=== PATIENT | male | born 1995 | race African-American/Black ===

== ENCOUNTER 2017-09-25 14:26 | Emergency (ER) | payer BC, MEDICAID ==
[~2017-09-25] VITALS: Ht 195.6 cm; Wt 70.0 kg
[2017-09-25] MEDS ORDERED: ONDANSETRON 4MG ODT PO ONE (19:30)
[2017-09-25 20:39] LABS: BASOPHILS % 0.7 % (0.0-2.0); EOSINOPHILS % 8.9 % (0.0-5.0); HEMATOCRIT. 41.8 % (42.0-52.0); HEMOGLOBIN. 13.7 g/dL (14.0-18.0); LYMPHOCYTES % 19.5 % (20.0-50.0); MEAN CORPUSCULAR HEMOGLOBIN 27.3 pg (28.0-32.0); MEAN CORPUSCULAR VOLUME 83.5 fL (80.0-94.0); MEAN PLATELET VOLUME 8.3 fl (7.4-10.4); MONOCYTES % 13.1 % (2.0-8.0); NEUTROPHILS % 57.8 % (40.0-76.0); PLATELET 162 x1000/uL (130-400); RED BLOOD CELL COUNT 5.01 mill/uL (4.7-6.1); RED CELL DISTRIBUTION WIDTH 13.1 % (11.6-14.6)
[2017-09-25 20:45] LABS: CHLORIDE 104 mEq/L (98-107)
[2017-09-25 20:51] LABS: CARBON DIOXIDE 30 mEq/L (21-32)
[2017-09-25 20:58] VITALS: BP 125/71
== END 2017-09-25 21:44 | disposition home or self-care (01) ==
LOC: ER 16:53
DX: R11.2 Nausea with vomiting, unspecified (principal); R19.7 Diarrhea, unspecified; J45.909 Unspecified asthma, uncomplicated; Z90.49 Acquired absence of other specified parts of digestive tract
CPT/HCPCS: 36415; 80048; 85025; 99284; Q0162

== ENCOUNTER 2019-06-29 01:19 | Emergency (ER) | payer BC, MEDICAID ==
[~2019-06-29] VITALS: Ht 185.4 cm; Wt 68.0 kg
[2019-06-29] MEDS ORDERED: PREDNISONE 20MG TABLET PO ONE (02:00)
[2019-06-29] MEDS ORDERED: ALBUTEROL (0.083%) 2.5MG/3ML NEB HHN ONE (02:00)
[2019-06-29 02:44] VITALS: BP 132/75
== END 2019-06-29 02:45 | disposition home or self-care (01) ==
LOC: ER 01:19
DX: J45.901 Unspecified asthma with (acute) exacerbation (principal)
CPT/HCPCS: 71045; 94640; 99283; J7512; J7611; Z7610

== ENCOUNTER 2023-07-28 01:34 | Emergency (ER) | payer BC, MEDICAID ==
[~2023-07-28] VITALS: Ht 190.5 cm; Wt 86.5 kg
[2023-07-28 01:45] VITALS: BP 159/98; PULSE 72; RESP 20; TEMP 98.2; O2SAT 97
[2023-07-28 02:55] LABS: CHLORIDE 107 mEq/L (98-107); INDEX HEMOLYSI 1 (1-3); INDEX ICTERIC 1 (1-4); INDEX LIPEMIC 1 (1-3); SODIUM 142 mEq/L (136-145)
[2023-07-28 03:02] LABS: ALANINE AMINOTRANSFERASE 30 IU/L (13-61); ALBUMIN 4.4 g/dL (3.4-5.0); ASPARTATE AMINOTRANSFERASE 25 IU/L (15-37); BILIRUBIN TOTAL 0.7 mg/dL (0.1-1.0); CALCIUM 9.3 mg/dL (8.5-10.1); CARBON DIOXIDE 30 mEq/L (21-32); CREATININE 1.3 mg/dL (0.6-1.3); GLUCOSE 102 mg/dL (70-105); PROTEIN TOTAL 7.9 g/dL (6.0-8.3); UREA NITROGEN BLOOD 11 mg/dL (7-21)
[2023-07-28 03:04] LABS: BASOPHILS % 0.3 % (0.0-2.0); EOSINOPHILS % 0.8 % (0.0-5.0); HEMATOCRIT. 43.4 % (42.0-52.0); HEMOGLOBIN. 14.4 g/dL (14.0-18.0); LYMPHOCYTES % 13.4 % (20.0-50.0); MEAN CORPUSCULAR HEMOGLOBIN 27.6 pg (28.0-32.0); MEAN CORPUSCULAR HGB CONC 33.2 g/dL (31.0-37.0); MEAN CORPUSCULAR VOLUME 83.2 fL (80.0-94.0); MEAN PLATELET VOLUME 8.7 fl (7.4-10.4); MONOCYTES % 8.4 % (2.0-8.0); NEUTROPHILS % 77.1 % (40.0-76.0); PLATELET 192 x1000/uL (130-400); RED BLOOD CELL COUNT 5.22 mill/uL (4.7-6.1); RED CELL DISTRIBUTION WIDTH 13.8 % (11.6-14.6); WHITE BLOOD COUNT 9.2 x1000/uL (4.5-11.0)
== END 2023-07-28 06:17 | disposition left against medical advice (07) ==
LOC: ER 01:34
DX: R10.9 Unspecified abdominal pain (principal); Z53.21 Procedure and treatment not carried out due to patient leaving prior to being seen by health care provider
CPT/HCPCS: 36415; 80053; 85025; 99281

== ENCOUNTER 2024-03-22 01:28 | Emergency (ER) | payer BC ==
[~2024-03-22] VITALS: Ht 188 cm; Wt 86.0 kg
[2024-03-22 01:34] VITALS: BP 151/102; PULSE 107; RESP 20; TEMP 98.4; O2SAT 98
[2024-03-22 02:05] LABS: BASOPHILS % 0.3 % (0.0-2.0); EOSINOPHILS % 0.9 % (0.0-5.0); HEMATOCRIT. 42.4 % (42.0-52.0); HEMOGLOBIN. 13.7 g/dL (14.0-18.0); LYMPHOCYTES % 12.3 % (20.0-50.0); MEAN CORPUSCULAR HEMOGLOBIN 27.2 pg (28.0-32.0); MEAN CORPUSCULAR HGB CONC 32.4 g/dL (31.0-37.0); MEAN PLATELET VOLUME 8.2 fl (7.4-10.4); MONOCYTES % 2.7 % (2.0-8.0); NEUTROPHILS % 83.8 % (40.0-76.0); PLATELET 179 x1000/uL (130-400); RED BLOOD CELL COUNT 5.05 mill/uL (4.7-6.1); RED CELL DISTRIBUTION WIDTH 13.1 % (11.6-14.6); WHITE BLOOD COUNT 9.4 x1000/uL (4.5-11.0)
[2024-03-22 02:09] LABS: CHLORIDE 107 mEq/L (98-107); POTASSIUM 3.4 mEq/L (3.5-5.1); SODIUM 141 mEq/L (136-145)
[2024-03-22 02:10] LABS: CARBON DIOXIDE 26 mEq/L (21-32)
[2024-03-22 02:11] LABS: CALCIUM 9.1 mg/dL (8.7-10.4)
[2024-03-22 02:15] LABS: CREATININE 1.2 mg/dL (0.6-1.3); GLUCOSE 95 mg/dL (70-105); UREA NITROGEN BLOOD 13 mg/dL (9-23)
[2024-03-22 02:17] LABS: ALANINE AMINOTRANSFERASE 25 IU/L (10-49); ALBUMIN 4.7 g/dL (3.2-4.8); ASPARTATE AMINOTRANSFERASE 30 IU/L (<34); BILIRUBIN DIRECT 0.5 mg/dL (<=3.0)
[2024-03-22 02:18] LABS: BILIRUBIN TOTAL 1.1 mg/dL (0.1-1.0); PROTEIN TOTAL 7.5 g/dL (6.0-8.3)
[2024-03-22] MEDS: MAGNESIUM/ALUMINUM HYDROXIDE/SIMETHICONE 30ML UDC PO NR (04:45)
[2024-03-22] MEDS ORDERED: ONDA4TAB11 PO (06:54)
== END 2024-03-22 07:15 | disposition home or self-care (01) ==
LOC: ER 01:28
DX: K80.50 Calculus of bile duct without cholangitis or cholecystitis without obstruction (principal); J45.909 Unspecified asthma, uncomplicated
CPT/HCPCS: 36415; 76705; 80048; 80076; 85025; 99284